=== PATIENT | male | born 1995 | race African-American/Black ===

== ENCOUNTER 2020-10-27 05:54 | Emergency (ER) | payer SELFPAY ==
[2020-10-27] MEDS ORDERED: DIPHTH,PERTUSS(ACELL),TET 0.5 ML DISP.SYRIN IM ONE (06:01)
[2020-10-27 06:09] VITALS: BP 127/97; PULSE 118; TEMP 98.8; BMI 30.5
== END 2020-10-27 07:00 | disposition home or self-care (01) ==
LOC: JER 05:54
PROC: 0HQDXZZ Repair Right Lower Arm Skin, External Approach (ICD-10-PCS; principal; 2020-10-27)
PROC: 3E0234Z Introduction of Serum, Toxoid and Vaccine into Muscle, Percutaneous Approach (ICD-10-PCS; 2020-10-27)
DX: S51.811A Laceration without foreign body of right forearm, initial encounter (principal)
CPT/HCPCS: 12002-25; 90471; 99284-25

== ENCOUNTER 2020-11-03 14:02 | Emergency (ER) | payer OTHER ==
[2020-11-03 14:15] VITALS: BP 116/76; PULSE 64; TEMP 98.6; BMI 29.8
== END 2020-11-03 15:24 | disposition home or self-care (01) ==
LOC: JERFT 14:02
DX: Z48.02 Encounter for removal of sutures (principal)
CPT/HCPCS: 99281-25